=== PATIENT | male | born 1950 | race Caucasian/White ===

== ENCOUNTER → 2019-07-25 | Outpatient (CLI) | payer MEDICARE, OTHER ==
--- NOTE | 2019-07-25 11:10 | Diagnostic Imaging Report ---
PROCEDURE: CT abdomen and pelvis without contrast. TECHNIQUE: Multiple contiguous axial images were obtained through the abdomen and pelvis without the use of intravenous contrast. Auto Exposure Controls were utilized during the CT exam to meet ALARA standards for radiation dose reduction. INDICATION: Prostate carcinoma. COMPARISON: No prior studies are available for comparison. FINDINGS: The lung bases are clear. The liver demonstrates generalized low density consistent with hepatic steatosis. No discrete liver mass is identified. Gallbladder is unremarkable. No biliary ductal dilatation is seen. The pancreas and spleen are unremarkable. No adrenal mass is identified. No renal calculi or hydronephrosis is identified. Aorta is heavily calcified but nonaneurysmal. No central retroperitoneal or mesenteric lymphadenopathy is detected. Bowel loops are normal in caliber. There is diverticulosis of the sigmoid and descending colon but no evidence of acute diverticulitis. Moderate stool in the right colon is noted. No free fluid or loculated fluid collection is identified. Bladder is unremarkable. Prostate is enlarged. No definite inguinal or iliac lymphadenopathy is seen. Periprosthetic tissues grossly unremarkable. There are bilateral fat-containing inguinal hernias. No osteosclerotic lesions are seen. IMPRESSION: 1. Hepatic steatosis. 2. Uncomplicated colonic diverticulosis. 3. No evidence of abdominal or pelvic lymphadenopathy or metastatic disease. 4. Prostatomegaly. 5. Bilateral fat-containing inguinal hernias. Dictated by: Dictated on workstation # [id number]
--- NOTE | 2019-07-25 14:19 | Diagnostic Imaging Report ---
INDICATION: Newly diagnosed prostate carcinoma. TECHNIQUE: Patient was administered 27.0 mCi technetium 99m MDP intravenously and whole-body imaging was performed after 3 hour delay. COMPARISON: No prior bone scan is available for comparison. FINDINGS: There is normal uptake of activity by the axial and appendicular skeleton. There is uptake by both kidneys with excretion into the urinary bladder. Vague uptake in the upper lumbar spine is noted, likely degenerative. No suspicious foci of tracer accumulation is seen to suggest osseous metastatic disease. IMPRESSION: No scintigraphic evidence of osseous metastatic disease. Dictated by: Dictated on workstation # [id number]
== END ==
LOC: CARD 09:52
PROVIDERS: ATTEND Urology
DX: K76.0 Fatty (change of) liver, not elsewhere classified (principal); K57.90 Diverticulosis of intestine, part unspecified, without perforation or abscess without bleeding; N40.0 Benign prostatic hyperplasia without lower urinary tract symptoms; K40.90 Unilateral inguinal hernia, without obstruction or gangrene, not specified as recurrent; C61 Malignant neoplasm of prostate
CPT/HCPCS: 74176; 78306

== ENCOUNTER 2019-08-30 08:22 | Outpatient (RCR) | payer MEDICARE, OTHER ==
[2019-11-15] MEDS ORDERED: PROP10TA8 PO (15:57)
[2019-11-15] MEDS ORDERED: OMEP-280 PO (15:57)
[2019-11-15] MEDS ORDERED: SIMV20TA26 PO (15:57)
[2019-11-15] MEDS ORDERED: AMLO1CAP4 PO (15:57)
[2019-11-15] MEDS ORDERED: TMSL.4C PO (15:57)
[2019-11-16] MEDS ORDERED: CYCL10TA9 PO (15:21)
[2019-11-16] MEDS ORDERED: MELA5CAP PO (15:21)
[2019-11-16] MEDS ORDERED: OMG1KC PO (15:21)
[2019-11-24] MEDS ORDERED: CIPR-226 PO (09:15)
[2019-11-24] MEDS ORDERED: TRM50T PO (09:44)
== END 2019-11-28 | disposition home or self-care (01) ==
LOC: ONC 08:22
PROVIDERS: ATTEND Radiology Radiation Oncology
DX: C61 Malignant neoplasm of prostate (principal)
CPT/HCPCS: 99205

== ENCOUNTER 2019-11-15 11:35 | Outpatient (CLI) | payer MEDICARE, OTHER ==
[~2019-11-15] VITALS: Ht 172.7 cm; Wt 95.5 kg
[2019-11-15 11:49] VITALS: BP 131/74
[2019-11-15 12:24] LABS: BASOPHILS % (AUTO) 0 % (0-10); EOSINOPHILS # (AUTO) 0.1 10^3/uL (0.0-0.3); EOSINOPHILS % (AUTO) 1 % (0-10); HEMATOCRIT 44 % (40-54); HEMOGLOBIN 15.5 G/DL (13.3-17.7); LYMPHOCYTES # (AUTO) 2.7 X 10^3 (1.0-4.0); LYMPHOCYTES % (AUTO) 42 % (12-44); MEAN CORPUSCULAR HEMOGLOBIN 33 PG (25-34); MEAN CORPUSCULAR HGB CONC 35 G/DL (32-36); MEAN CORPUSCULAR VOLUME 93 FL (80-99); MEAN PLATELET VOLUME 10.4 FL (7.4-10.4); MONOCYTES # (AUTO) 0.6 X 10^3 (0.0-1.0); MONOCYTES % (AUTO) 9 % (0-12); NEUTROPHILS % (AUTO) 47 % (42-75); PLATELET COUNT 182 10^3/uL (130-400); RED CELL DISTRIBUTION WIDTH 12.1 % (10.0-14.5); WHITE BLOOD COUNT 6.4 10^3/uL (4.3-11.0)
[2019-11-15 12:41] LABS: BUN/CREATININE RATIO 16; CALCIUM 8.9 MG/DL (8.5-10.1); CARBON DIOXIDE 24 MMOL/L (21-32); CHLORIDE 106 MMOL/L (98-107); GFR ESTIMATED > 60; GLUCOSE 101 MG/DL (70-105); POTASSIUM 4.1 MMOL/L (3.6-5.0); SODIUM 139 MMOL/L (135-145)
[2019-11-15] MEDS ORDERED: SIMV20TA26 PO (15:57)
[2019-11-15] MEDS ORDERED: TMSL.4C PO (15:57)
[2019-11-15] MEDS ORDERED: PROP10TA8 PO (15:57)
[2019-11-15] MEDS ORDERED: AMLO1CAP4 PO (15:57)
[2019-11-15] MEDS ORDERED: OMEP-280 PO (15:57)
[2019-11-16] MEDS ORDERED: CYCL10TA9 PO (15:21)
[2019-11-16] MEDS ORDERED: MELA5CAP PO (15:21)
[2019-11-16] MEDS ORDERED: OMG1KC PO (15:21)
== END 2019-11-15 12:15 | disposition home or self-care (01) ==
LOC: PREOP 11:35
PROVIDERS: ATTEND Urology
DX: Z01.812 Encounter for preprocedural laboratory examination (principal); Z01.810 Encounter for preprocedural cardiovascular examination; C61 Malignant neoplasm of prostate
CPT/HCPCS: 36415; 80048; 85025; 87081; 93005

== ENCOUNTER 2019-11-23 08:45 | Inpatient (IN) | payer MEDICARE, OTHER ==
[~2019-11-23] VITALS: Ht 172.7 cm; Wt 95.5 kg
[2019-11-23] VITALS (11 sets, daily range): BP systolic 115–135; BP diastolic 24–109
[~2019-11-23 08:45] MED LIST: AMLO1CAP4 PO; CYCL10TA9 PO; MELA5CAP PO; OMEP-280 PO; OMG1KC PO; PROP10TA8 PO; SIMV20TA26 PO; TMSL.4C PO
[2019-11-23] MEDS ORDERED: ONDANSETRON 4 MG/2 ML (SDV) Z0FRAN ONE (09:02)
[2019-11-23] MEDS ORDERED: proPOfol 200 MG/20 ML (DIPRIVAN) VIAL IV ONE (09:02)
[2019-11-23] MEDS ORDERED: DEXAMETHASONE 10 MG/ML (DECADRON) 1 ML VIAL ONE (09:02)
[2019-11-23] MEDS ORDERED: LIDOCAINE PF 2% 5 ML (XYLOCAINE) VIAL ONE (09:02)
[2019-11-23] MEDS ORDERED: MIDAZOLAM 2 MG/2 ML (VERSED) VIAL ONE (09:02)
[2019-11-23] MEDS ORDERED: fentaNYL INJECTION 100 MCG/2 ML AMP ONE ×2 (09:02→12:24)
[2019-11-23] MEDS ORDERED: ceFAZolin INJECTION 1,000 MG in WATER (STERILE) FOR INJECTION 10 ML IV ONE (09:15)
[2019-11-23] MEDS ORDERED: CATHETER FLUSH 10 ML SYR IV PRN (09:30)
[2019-11-23] MEDS: LACTATED RINGERS 1,000 ML IV PRN ×2 (09:33→12:17)
[2019-11-23] MEDS ORDERED: BUPIVACAINE 0.25% 30 ML (SENSORCAINE) VIAL ONE (09:57)
[2019-11-23] MEDS ORDERED: MILK OF MAGNESIA 400 MG/5 ML 30 ML UDC PO PRN (10:15)
[2019-11-23] MEDS ORDERED: BISACODYL 10 MG SUPP (DULCOLAX) PR PRN (10:15)
[2019-11-23] MEDS ORDERED: ONDANSETRON 4 MG (ZOFRAN) ORAL DISSOLVE TAB PO PRN (10:15)
[2019-11-23] MEDS ORDERED: morphine INJ 4 MG/ML 1 ML (VIAL/SYRINGE) IVP PRN (10:15)
[2019-11-23] MEDS ORDERED: HYOSCYAMINE 0.125 MG (LEVSIN) TAB PO PRN (10:15)
[2019-11-23] MEDS ORDERED: SEVOFLURANE (ULTANE) 15 ML INHAL SOLN ONE (11:24)
[2019-11-23] MEDS ORDERED: ROCURONIUM 10 MG/ML 5 ML SYRINGE IV ONE (12:28)
--- NOTE | 2019-11-23 12:44 | Progress Note-Post Operative ---
Post-Operative Progess Note Surgeon (s)/Review Scheduling Coordinator (s) Surgeon ARCADIO AMEZQUITA MD Review Scheduling Coordinator: None Pre-Operative Diagnosis Prostate cancer Post-Operative Diagnosis Prostate cancer and right inguinal hernia Procedure & Operative Findings Date of Procedure 11/23/19 Procedure Performed/Findings Robotic prostatectomy, bilateral wide dissection, bilateral pelvic node dissection, right inguinal hernia repair Anesthesia Type General Estimated Blood Loss Estimated blood loss (mL): 200 Specimens/Packing Specimens Removed Prostate, right and left pelvic lymph nodes ARCADIO AMEZQUITA MD Nov 23, 2019 12:44
[2019-11-23] MEDS ORDERED: morphine INJ 10 MG/ML 1ML (SYR OR VIAL) ONE (12:59)
[2019-11-23] MEDS ORDERED: PROMETHAZINE INJ 25 MG/ML (PHENERGAN) AMP IVP ONE (13:00)
[2019-11-23] MEDS ORDERED: ONDANSETRON 4 MG/2 ML (SDV) Z0FRAN IVP PRN (13:00)
[2019-11-23] MEDS ORDERED: MEPERIDINE (DEMEROL) INJ 50 MG/ML IVP ONE (13:00)
[2019-11-23] MEDS ORDERED: morphine INJ 10 MG/ML 1ML (SYR OR VIAL) IVP ONE (13:00)
[2019-11-23] MEDS: ACETAMINOPHEN 500 MG TAB (TYLENOL) PO SCH ×2 (16:04→20:54)
[2019-11-23] MEDS: LACTATED RINGERS 1,000 ML IV SCH ×2 (16:22→18:45)
--- NOTE | 2019-11-23 19:37 | OPERATIVE REPORT ---
DATE OF SERVICE: 11/23/2019 ATTENDING SURGEON: Arnie Carnes MD. IMAGE PROCESSING ENGINEER SURGEON: None. 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 PROCEDURE PERFORMED: 1. Robotic-assisted laparoscopic radical prostatectomy with bilateral wide dissection and bilateral pelvic lymph node dissections. 2. Right direct inguinal hernia repair, primary tissue repair. COMPLICATIONS: None. DRAINS: A 20-Macedonian Robles catheter to dependent drainage. ANESTHESIA: General endotracheal anesthesia. ESTIMATED BLOOD LOSS: 200 mL. SPECIMEN REMOVED: 1. Prostate and seminal vesicles. 2. Right and left pelvic lymph nodes. COMPLICATIONS: None. INDICATIONS FOR PROCEDURE: The patient is a very pleasant 69-year-old gentleman who has a history of unfavorable intermediate risk adenocarcinoma of the prostate, who had been counseled previously on various treatment options and elected to proceed with robotic-assisted laparoscopic radical prostatectomy with bilateral wide dissection, bilateral extended pelvic lymphadenectomy. DESCRIPTION OF PROCEDURE: After reviewing risks, benefits and alternatives of the procedure, the patient was taken to the operative suite, placed under general endotracheal anesthesia. He was in the dorsal lithotomy position and the genitals were prepped and draped in the usual sterile fashion. Preoperative timeout was performed. Appropriate perioperative antibiotics were instilled. We began by making the incision cephalad to the umbilicus through which a Veress needle was inserted and the saline drop test was performed. Abdomen was then insufflated to 50 mmHg. An 8 mm camera port was placed at the site and the camera was inserted in the patient's abdomen. No intra-abdominal adhesions were noted and therefore the remainder of the ports were placed. Ports were placed as follows: Two left lateral ports, one at the level of the umbilicus and midclavicular line, one at the level of the umbilicus in the mid axillary line and three ports in the right anita abdomen, one 8 mm port at the midclavicular line at the level of the umbilicus and a 12 mm port at the mid axillary line at the level of the umbilicus. An additional 5 mm port was placed in the right upper quadrant. With this completed, the patient was moved in a steep Trendelenburg position and the robot was docked. We began by performing a posterior dissection. The peritoneum overlying the seminal vesicles was incised and the seminal vesicles and vas deferens circumferentially dissected and divided. The Denonvilliers fascia was incised and the rectum was released. The prostatic pedicles were divided using bipolar electrocautery and the remainder of the lateral attachments were released. With this completed, a bilateral pelvic lymphadenectomy was then performed. The peritoneum overlying the external iliac arteries bilaterally was incised and lymphatic tissue overlying the external iliac artery and vein. The obturator nerve and the internal iliac artery was elevated and controlled using Hem-o-joselin clips were resected and sent for permanent section. With this completed, the bladder was intraperitonealized by releasing the peritoneum from the anterior abdominal wall and the lateral border of the medial umbilical ligaments with these divided at the level of the urachus. With the bladder intraperitonealized, the prostate was visualized and defatted. Denonvilliers fascia was opened and the previous posterior plane was connected. The dorsal venous complex was approached by dividing the puboprostatic ligaments and controlled with an 0 Vicryl suture in a [id number] fashion. The bladder neck was then developed with a combination of sharp and blunt dissection. Once the bladder was entered, we were able to identify the ureteral orifices and excellent tight bladder neck. The remainder of the posterior attachments were released and the planes were connected. The remainder of any prostatic pedicles were divided using bipolar electrocautery. The dorsal venous complex was then divided and the urethra was divided sharply. The specimen was placed in an EndoCatch bag for later extraction. Hemostasis was then achieved and a standard anastomosis was performed using a 2-0 Monocryl suture in a running fashion and tied in the midline posteriorly and brought around anteriorly. No reconstruction was required. A new 20-Macedonian Robles catheter was placed after completion of the anastomosis and this was a leak test without any evidence of anastomotic leak. We then turned our attention to the wall. During the lymphadenectomy, we did note that there was a right direct inguinal hernia approximately 4 cm in diameter. The hernia contents were reduced and the edges were inspected. We consulted with our general surgery colleagues regarding possible repair approaches. Ultimately, elected to perform a primary tissue repair using a 2-0 V-Loc suture run to close the space. Peritoneum was then reapproximated and the hernia repair was completed. We then repositioned the specimen back to the midline port. The robot was undocked and the abdomen was desufflated. We extended the midline incision in order to allow extraction. The specimen was then extracted and the fascia was closed using 0 Vicryl sutures in [id number] fashion. The skin was then closed using a 4-0 Monocryl suture in a subcuticular fashion with Dermabond placed over the top. All incisions were infiltrated with local anesthesia prior to completion of the procedure. Dr. Arnie Carnes was scrubbed and present for the entirety of the surgical procedure with no marketing support assistant surgeons. Job ID: [id number] DocumentID: [id number] Dictated Date: 11/23/2019 13:03:30 Soiled Linen Distributor Date: 11/23/2019 19:36:57 Dictated By: Arnie Carnes MD [facility]
[2019-11-23] MEDS: OXYBUTYNIN (DITROPAN) 5 MG TAB PO SCH (20:54)
[2019-11-23] MEDS ORDERED: SENNA W/DOCUSATE (SENOKOT S) TABLET PO SCH (21:00)
[2019-11-23] MEDS ORDERED: traZODone 50 MG (DESYREL) TAB PO SCH (21:00)
[2019-11-24] VITALS: BP 133/66
[2019-11-24] MEDS: LACTATED RINGERS 1,000 ML IV SCH (00:44)
[2019-11-24 04:00] VITALS: BP 132/72
[2019-11-24] MEDS: ACETAMINOPHEN 500 MG TAB (TYLENOL) PO SCH ×2 (04:00→08:56)
--- NOTE | 2019-11-24 06:48 | Anesthesia-General Post-Op ---
General Patient Condition Mental Status/LOC: Same as Preop Cardiovascular: Satisfactory Nausea/Vomiting: Absent Respiratory: Satisfactory Pain: Controlled Complications: Absent Post Op Complications Complications None Follow Up Care/Instructions Patient Instructions None needed. Anesthesia/Patient Condition Patient Condition Patient is doing well, no complaints, stable vital signs, no apparent adverse anesthesia problems. No complications reported per nursing. LOUANN FNOG CRNA Nov 24, 2019 06:48
[2019-11-24 07:22] LABS: HEMOGLOBIN 13.5 G/DL (13.3-17.7); MEAN PLATELET VOLUME 10.2 FL (7.4-10.4); RED CELL DISTRIBUTION WIDTH 11.7 % (10.0-14.5); WHITE BLOOD COUNT 11.7 10^3/uL (4.3-11.0)
[2019-11-24 07:37] LABS: BUN/CREATININE RATIO 14; CALCIUM 8.7 MG/DL (8.5-10.1); CARBON DIOXIDE 20 MMOL/L (21-32); CHLORIDE 103 MMOL/L (98-107); CREATININE SERUM 1.04 MG/DL (0.60-1.30); GFR ESTIMATED > 60; GLUCOSE 127 MG/DL (70-105); POTASSIUM 4.2 MMOL/L (3.6-5.0); SODIUM 136 MMOL/L (135-145)
[2019-11-24 08:00] VITALS: BP 132/66
[2019-11-24] MEDS: OXYBUTYNIN (DITROPAN) 5 MG TAB PO SCH (08:56)
[2019-11-24] MEDS ORDERED: CIPR-226 PO (09:15)
--- NOTE | 2019-11-24 09:15 | Progress Note - Urology ---
Progress Note-Urology Progress Notes/Assess & Plan Progress/Assessment & Plan FEELING AND DOING WELL. HOME WITH INSTRUCTIONS Final Diagnosis CA PROSTATE RADHA MILLER MD Nov 24, 2019 09:15
[2019-11-24] MEDS ORDERED: TRM50T PO (09:44)
[2019-11-24] MEDS ORDERED: LEVOFLOXACIN 500 MG TAB (LEVAQUIN) PO NR (10:15)
[2019-11-24 10:45] VITALS: BP 132/66
== END 2019-11-24 10:45 | disposition home or self-care (01) | DRG 708 ==
LOC: 4TH 08:45 → SURG 08:46 → EDSTATUS 10:30 → 4TH 13:30
PROVIDERS: ADMIT Urology; ATTEND Urology
PROC: 07BC4ZZ Excision of Pelvis Lymphatic, Percutaneous Endoscopic Approach (ICD-10-PCS; 2019-11-23)
PROC: 0YQ54ZZ Repair Right Inguinal Region, Percutaneous Endoscopic Approach (ICD-10-PCS; 2019-11-23)
PROC: 8E0W4CZ Robotic Assisted Procedure of Trunk Region, Percutaneous Endoscopic Approach (ICD-10-PCS; 2019-11-23)
PROC: 0VT04ZZ Resection of Prostate, Percutaneous Endoscopic Approach (ICD-10-PCS; principal; 2019-11-23 10:17)
DX: C61 Malignant neoplasm of prostate (principal); I10 Essential (primary) hypertension; E66.9 Obesity, unspecified; K21.9 Gastro-esophageal reflux disease without esophagitis; M19.90 Unspecified osteoarthritis, unspecified site; Z87.891 Personal history of nicotine dependence; Z68.32 Body mass index [BMI] 32.0-32.9, adult
CPT/HCPCS: 36415; 80048; 85027; 94664

== ENCOUNTER → 2022-11-05 | Outpatient (CLI) | payer MEDICARE, OTHER ==
[~2022-11-05] MED LIST changes: +CIPR-226 PO; +CYCL10TA25 PO; -CYCL10TA9 PO; -OMEP-280 PO; +OMEP20CA18 PO; +TRM50T PO
--- NOTE | 2022-11-05 14:26 | Diagnostic Imaging Report ---
EXAMINATION: CT chest without contrast (lung screening). TECHNIQUE: Multiple contiguous axial images were obtained through the chest without the use of intravenous contrast according to lung cancer screening protocol. All CT scans use one or more of the following dose optimizing techniques: automated exposure control, MA and/or KvP adjustment based on patient size and exam type or iterative reconstruction. HISTORY: 40 pack year history of smoking. COMPARISON: None available. FINDINGS: There is no edema or pneumonia. No pleural effusion. No pneumothorax. No suspicious nodules. There are calcified granulomas in the left upper lobe. There is no axillary or supraclavicular lymphadenopathy. There is no mediastinal lymphadenopathy. Heart size is normal. There are moderate coronary artery calcifications. No pericardial effusion. Aorta is normal in caliber. Limited views of the upper abdomen are unremarkable. There are no suspicious osseous lesions. IMPRESSION: 1. No suspicious pulmonary nodules. LUNG-RADS CATEGORY: 2 MODIFIER: None. Dictated by: Dictated on workstation # [id number]
== END ==
LOC: RAD 12:15
PROVIDERS: ATTEND Family Medicine
DX: Z13.83 Encounter for screening for respiratory disorder NEC (principal); Z87.891 Personal history of nicotine dependence
CPT/HCPCS: 71271